=== PATIENT | female | born 1975 | race Caucasian/White ===

== ENCOUNTER 2017-03-22 18:28 | Emergency (ER) | payer BC ==
[~2017-03-22] VITALS: Ht 162.6 cm; Wt 77.3 kg
[2017-03-22 18:29] VITALS: TEMP 36.7; Ht 162.6 cm; Wt 77.3 kg
[2017-03-22] MEDS ORDERED: SODIUM CHLORIDE 0.9% 1000ML 1,000 ML IV STA (19:29)
[2017-03-22] MEDS ORDERED: LORAZEPAM 2 MG/ML 1 ML VIAL IV STA (19:29)
[2017-03-22] MEDS ORDERED: MECLIZINE HCL 25 MG TAB PO STA (19:29)
[2017-03-22] MEDS ORDERED: ONDANSETRON INJ 2 MG/ML 2 ML VIAL IV STA (19:29)
[2017-03-22] MEDS ORDERED: METHYLPREDNISOLONE 125 MG VIAL IV STA (19:29)
--- NOTE | 2017-03-22 19:37 | EMERGENCY ROOM VISIT NOTE ---
History Report prepared by Agatha: Estela Shine Under the Supervision of: Dr. Price Santos M.D. First contact with patient: 19:21 Chief Complaint: VERTIGO Stated Complaint: VERTIGO,VOMITING History of Present Illness The patient is a 41 year old female who presents to the Emergency Room with complaints of constant vertigo beginning today. The patient has been having issues with her allergies for the past week. She has been taking Claritin, Flonase, and Sudafed to manage these symptoms and states that she has taken these medications in the past without any issues. Today the patient was sitting down and working when she started to feel dizzy. She states that she continued her work, but suddenly became nauseated and had to vomit. This started very suddenly today. She denies feeling like she is spinning or feeling like the room is spinning. The patient states that her symptoms worsen with movement and resolve if she remains completely still. She has had vertigo in the past and states that she had more of a room-spinning sensation at that time, but she states that this feels similar to her previous vertigo although this episode is much more intense. The patient notes ear pressure but denies any ear pain. She denies any recent injury or trauma. She denies hitting her head or falling. The patient also denies any numbness or weakness in her extremities, fevers, cough, sore throat, and urinary symptoms. Source of History: patient Onset: today Position: other (global) Quality: other (vertigo/dizzy) Timing: constant Modifying Factors (Worsening): movement Modifying Factors (Relieving): other (remaining still) Associated Symptoms: + nausea, + vomiting, No fevers, No sorethroat, No cough, No urinary symptoms, No weakness, No numbness Note: Pt notes ear pressure but denies ear pain. Pt denies recent injury or trauma. Review of Systems See HPI for pertinent positives & negatives. A total of 10 systems reviewed and were otherwise negative. Past Medical & Surgical Medical Problems: (1) Lyme disease Surgical Problems: (1) History of appendectomy Social History Problems: (1) IUD (intrauterine device) in place Family History Cancer FH: heart disease Hypertension Social History Smoking Status: Never Smoker Smokeless Tobacco Use: No Alcohol Use: none Drug Use: none Marital Status: Housing Status: lives with family Occupation Status: employed Current/Historical Medications Scheduled Loratadine (Claritin), 10 MG PO DAILY Scheduled PRN Fluticasone Propionate (Nasal) (Flonase Allergy Relief), 2 SPRAYS HANNAH BID PRN for Nasal Congestion Pseudoephedrine (Sudafed), 30 MG PO BID PRN for CONGESTION Allergies Coded Allergies: Promethazine (Verified Adverse Reaction, Severe, RESTLESSNESS, 03/22/17) Physical Exam Vital Signs Date Time Temp Pulse Resp B/P (MAP) Pulse Ox O2 Delivery O2 Flow Rate FiO2 03/22/17 22:29 100 16 131/74 98 Room Air 03/22/17 19:49 82 16 132/78 96 Room Air 03/22/17 18:29 36.7 127 16 152/90 96 Room Air Physical Exam GENERAL: Patient is in no acute distress. HEENT: No acute trauma, normocephalic atraumatic, mucous membranes moist, no nasal congestion, no scleral icterus, PERRL, no nystagmus. TMs clear bilaterally. NECK: No stridor, no adenopathy, no meningismus, trachea is midline. LUNGS: Clear to auscultation bilaterally, no wheeze, no rhonchi, breath sounds equal. HEART: Tachycardic with a regular rhythm, no murmurs. ABDOMEN: Soft, nontender, bowel sounds positive, no hernias, no peritonitis. EXTREMITIES: No cyanosis or edema, full range of motion of all the joints without pain or difficulty, no signs for acute trauma. NEUROLOGIC: Oriented x 3, no acute motor or sensory deficits, no focal weakness. No facial droop or speech slur, no pronator drift or cerebellar dysfunction, no nystagmus. SKIN: No rash, no jaundice, no diaphoresis. Medical Decision & Procedures ER Provider Diagnostic Interpretation: Radiology results as stated below per my review and radiologist interpretation: CT SCAN OF THE BRAIN WITHOUT IV CONTRAST CLINICAL HISTORY: Dizziness. COMPARISON STUDY: No priors. TECHNIQUE: Unenhanced axial CT scan of the brain is performed from the vertex to the skull base. Automated dose control exposure was utilized. A dose lowering technique was utilized adhering to the principles of ALARA. CT DOSE: 537.48 mGy.cm FINDINGS: Brain parenchyma: A small chronic lacunar infarct is noted in the right cerebellar hemisphere. The brain parenchyma is otherwise normal in appearance. There is no hemorrhage, mass effect, or evidence of acute territorial ischemia by CT criteria. Alaniz-white matter is preserved. No extra-axial fluid collection is seen. Ventricles, sulci, cisterns: Normal in configuration. Intracranial vasculature: The visualized intracranial vasculature at the skull base is normal in appearance. Calvarium: Unremarkable. Sinuses and mastoids: There is evidence of previous paranasal sinus surgery. The visualized paranasal sinuses are clear. The mastoid air cells are well pneumatized. Orbits: The bony orbits are grossly intact. IMPRESSION: 1. There is no hemorrhage, mass effect, or evidence of acute territorial ischemia by CT criteria. 2. A chronic lacunar infarct is noted in the right cerebellar hemisphere. Electronically signed by: Price Ash M.D. 03/22/2017 10:15 PM Dictated Date/Time: 03/22/2017 10:13 PM Laboratory Results 03/22/17 21:45 Red Blood Count 4.72, Mean Corpuscular Volume 86.9, Mean Corpuscular Hemoglobin 30.9, Mean Corpuscular Hemoglobin Concent 35.6, Mean Platelet Volume 10.9, Neutrophils (%) (Auto) 85.4, Lymphocytes (%) (Auto) 8.5, Monocytes (%) (Auto) 5.4, Eosinophils (%) (Auto) 0.2, Basophils (%) (Auto) 0.1, Neutrophils # (Auto) 17.81, Lymphocytes # (Auto) 1.78, Monocytes # (Auto) 1.12, Eosinophils # (Auto) 0.04, Basophils # (Auto) 0.02 03/22/17 21:45 Test 03/22/17 21:45 White Blood Count 20.85 K/uL (4.8-10.8) Red Blood Count 4.72 M/uL (4.2-5.4) Hemoglobin 14.6 g/dL (12.0-16.0) Hematocrit 41.0 % (37-47) Mean Corpuscular Volume 86.9 fL (80-100) Mean Corpuscular Hemoglobin 30.9 pg (25-34) Mean Corpuscular Hemoglobin Concent 35.6 g/dl (32-36) Platelet Count 226 K/uL (130-400) Mean Platelet Volume 10.9 fL (7.4-10.4) Neutrophils (%) (Auto) 85.4 % Lymphocytes (%) (Auto) 8.5 % Monocytes (%) (Auto) 5.4 % Eosinophils (%) (Auto) 0.2 % Basophils (%) (Auto) 0.1 % Neutrophils # (Auto) 17.81 K/uL (1.4-6.5) Lymphocytes # (Auto) 1.78 K/uL (1.2-3.4) Monocytes # (Auto) 1.12 K/uL (0.11-0.59) Eosinophils # (Auto) 0.04 K/uL (0-0.5) Basophils # (Auto) 0.02 K/uL (0-0.2) RDW Standard Deviation 42.1 fL (36.4-46.3) RDW Coefficient of Variation 13.1 % (11.5-14.5) Immature Granulocyte % (Auto) 0.4 % Immature Granulocyte # (Auto) 0.08 K/uL (0.00-0.02) Anion Gap 8.0 mmol/L (3-11) Est Creatinine Clear Calc Drug Dose 118.3 ml/min Estimated GFR () 129.1 Estimated GFR (Non- 111.4 BUN/Creatinine Ratio 16.5 (10-20) Calcium Level 8.9 mg/dl (8.5-10.1) Total Bilirubin 0.6 mg/dl (0.2-1) Aspartate Amino Transf (AST/SGOT) 22 U/L (15-37) Alanine Aminotransferase (ALT/SGPT) 35 U/L (12-78) Alkaline Phosphatase 92 U/L (45-117) Total Protein 7.9 gm/dl (6.4-8.2) Albumin 4.0 gm/dl (3.4-5.0) Globulin 3.9 gm/dl (2.5-4.0) Albumin/Globulin Ratio 1.0 (0.9-2) Thyroid Stimulating Hormone (TSH) 2.550 uIu/ml (0.300-4.500) Human Chorionic Gonadotropin, Qual NEG (NEG) Laboratory results reviewed by me. Medications Administered Medications (Trade) Dose Ordered Sig/Amira Route Start Time Stop Time Status Last Admin Dose Admin Ondansetron HCl (Zofran Inj) 4 mg NOW STAT IV 03/22/17 19:29 03/22/17 19:34 DC 03/22/17 21:49 4 MG Sodium Chloride 1,000 ml @ 999 mls/hr Q1H1M STAT IV 03/22/17 19:29 03/22/17 20:29 DC 03/22/17 19:29 999 MLS/HR Meclizine HCl (Antivert Tab) 25 mg NOW STAT PO 03/22/17 19:29 03/22/17 19:34 DC 03/22/17 21:49 25 MG Lorazepam (Ativan Inj) 0.5 mg NOW STAT IV 03/22/17 19:29 03/22/17 19:34 DC 03/22/17 19:29 0.5 MG Methylprednisolone Sodium Succinate (Solu-Medrol IV) 60 mg NOW STAT IV 03/22/17 19:29 03/22/17 19:34 DC 03/22/17 19:29 60 MG ECG Indication: nausea Rate (beats per minute): 96 Rhythm: normal sinus Findings: no acute ischemic change, prolonged QT (somewhat), no ectopy ED Course 1920: The patient was evaluated in room B12B. A complete history and physical exam was performed. 1928: Solu-Medrol 60 mg IV, Ativan 0.5 mg IV, Antivert tab 25 mg PO, NSS 1000 ml @ 999 mls/hr IV, Zofran 4 mg IV 2241: I reassessed the patient at this time. She is feeling better and resting comfortably. I discussed the results and treatment plan with the patient. I answered all pertaining questions that she had. She expressed understanding and verbalized agreement. 2326: I spoke with Dr. Patrick. We discussed the patient's case. The patient will be evaluated by the [facility] for further management. Medical Decision Differential diagnoses includes vertigo, dehydration, dysrhythmia, stroke, UTI, , electrolyte imbalance, anemia. There is a significant leukocytosis, this could be consistent with infection or just the stress of today's event. No concerning anemia. No significant electrolyte abnormality, kidney failure or hepatitis. The patient appears to be in a euthyroid state. testing is negative. Brain CT shows an old infarct in the cerebellum, no acute bleed or acute stroke seen. On my exam, there were no focal neurologic deficits. The patient was not febrile or toxic. She states that lately she has been dealing with some allergies but otherwise has been feeling at baseline. The patient received IV saline, IV Zofran, IV Ativan, oral meclizine. She received IV Solu-Medrol. The patient is feeling improved. She still has some symptoms though. With the findings of an old stroke in the cerebellum, I was concerned about a potential new stroke causing her symptoms. I did think further workup was warranted. Certainly, her symptoms could be vertiginous but with the old stroke findings on CT, acute stroke is a consideration as well. She is not a candidate for TPA as she is out of the time window for TPA and as, she has no significant findings on exam that would warrant TPA administration. I spoke to the patient and case management. The on-call hospitalist was consulted. Medication Reconcilliation Current Medication List: was personally reviewed by me Blood Pressure Screening Patient's blood pressure: Elevated blood pressure Blood pressure disposition: Elevated BP felt to be situational Consults Time Called: 2251 Consulting Physician: Dr. Patrick Returned Call: [address] Patrick. We discussed the patient's case. The patient will be evaluated by the [facility] for further management. Impression Primary Impression: Stroke-like symptoms Additional Impression: Vomiting Scribe Attestation The scribe's documentation has been prepared under my direction and personally reviewed by me in its entirety. I confirm that the note above accurately reflects all work, treatment, procedures, and medical decision making performed by me. 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
[2017-03-22] MEDS ORDERED: PSEU30TA20 PO (20:54)
[2017-03-22] MEDS ORDERED: FLUT0.15 NAE (20:54)
[2017-03-22] MEDS ORDERED: CLR10 PO (20:54)
[2017-03-22] MEDS ORDERED: LORAZEPAM 2 MG/ML 1 ML VIAL ONE (21:44)
[2017-03-22] MEDS ORDERED: MECLIZINE HCL 25 MG TAB PO ONE (21:45)
[2017-03-22] MEDS ORDERED: ONDANSETRON INJ 2 MG/ML 2 ML VIAL ONE (21:46)
[2017-03-22 21:56] LABS: MEAN CELL VOLUME 86.9 fL (80-100); MEAN CORPUSCULAR HEMOGLOBIN 30.9 pg (25-34); MEAN CORPUSCULAR HGB CONC 35.6 g/dl (32-36); MEAN PLATELET VOLUME 10.9 fL (7.4-10.4); PLATELET COUNT 226 K/uL (130-400); RED BLOOD COUNT 4.72 M/uL (4.2-5.4); WHITE BLOOD COUNT 20.85 K/uL (4.8-10.8)
[2017-03-22 22:15] LABS: BUN/CREATININE RATIO 16.5 (10-20); CALCIUM 8.9 mg/dl (8.5-10.1); CREATININE 0.63 mg/dl (0.60-1.20); POTASSIUM 3.8 mmol/L (3.5-5.1)
--- NOTE | 2017-03-22 22:17 | DIAGNOSTIC IMAGING REPORT ---
CT SCAN OF THE BRAIN WITHOUT IV CONTRAST CLINICAL HISTORY: Dizziness. COMPARISON STUDY: No priors. TECHNIQUE: Unenhanced axial CT scan of the brain is performed from the vertex to the skull base. Automated dose control exposure was utilized. A dose lowering technique was utilized adhering to the principles of ALARA. CT DOSE: 537.48 mGy.cm FINDINGS: Brain parenchyma: A small chronic lacunar infarct is noted in the right cerebellar hemisphere. The brain parenchyma is otherwise normal in appearance. There is no hemorrhage, mass effect, or evidence of acute territorial ischemia by CT criteria. Alaniz-white matter is preserved. No extra-axial fluid collection is seen. Ventricles, sulci, cisterns: Normal in configuration. Intracranial vasculature: The visualized intracranial vasculature at the skull base is normal in appearance. Calvarium: Unremarkable. Sinuses and mastoids: There is evidence of previous paranasal sinus surgery. The visualized paranasal sinuses are clear. The mastoid air cells are well pneumatized. Orbits: The bony orbits are grossly intact. IMPRESSION: 1. There is no hemorrhage, mass effect, or evidence of acute territorial ischemia by CT criteria. 2. A chronic lacunar infarct is noted in the right cerebellar hemisphere. Electronically signed by: Price Ash M.D. 03/22/2017 10:15 PM Dictated Date/Time: 03/22/2017 10:13 PM
[2017-03-22 22:26] LABS: THYROID STIMULATING HORMONE 2.55 uIu/ml (0.300-4.500)
[2017-03-22 22:28] LABS: BASO % 0.1 %; BASO ABS # 0.02 K/uL (0-0.2); COMPLETE YES; EOS % 0.2 %; IG% 0.4 %; LYMPH % 8.5 %; LYMPH ABS # 1.78 K/uL (1.2-3.4); MONO % 5.4 %; NEUT % 85.4 %
[2017-03-22 22:36] LABS: PREG INTERNAL NEGATIVE QC NEG CLEAR BACKGROUND; PREG INTERNAL POSITIVE QC POS CONTROL LINE
[2017-03-22] MEDS ORDERED: OPTIRAY 320 IV PRN (23:45)
--- NOTE | 2017-03-23 00:20 | History and Physical ---
History & Physical Date & Time of Service: Mar 22, 2017 at 23:34 Chief Complaint: Vertigo,Vomiting Primary Care Physician: No Doctor, Assigned History of Present Illness Source: patient 41 y/o F Hx seasonal allergies and vertigo. She had been taking Pseudafed and Claritin recently for her allergies. She became dizzy at work and then developed nausea and vomiting which persisted prompting her to visit the ER. The pt was provided with Ativan, Zofran, Meclizine and Solumedrol. She gradually improved and was initially slated for discharge. A CT head however raises suspicion for a chronic cerebelar lacunar infarct. She states she knew she had an abnormality on imaging 8 years earlier owing to a vertigo work up at that time. She mentions that it was initially suspected that she had a small tumor and then MS which were both apparently ruled out. She does not recall being told that she may have had a CVA. She recently completed a course of antibiotics for Lyme disease which was diagnosed in January. Past Medical/Surgical History Medical Problems: (1) Lyme disease Status: Resolved 2) Seasonal allergies 3) Vertigo Surgical Problems: (1) History of appendectomy Status: Resolved Social History Problems: (1) IUD (intrauterine device) in place Status: Chronic Family History Cancer FH: heart disease Hypertension Father owing to an IA Mother is alive No history of CVA Social History Smoking Status: Never Smoker Smokeless Tobacco Use: No Drug Use: none Marital Status: Occupational Status: employed Allergies Coded Allergies: Promethazine (Verified Adverse Reaction, Severe, RESTLESSNESS, 03/22/17) Home Medications Scheduled Loratadine (Claritin), 10 MG PO DAILY Scheduled PRN Fluticasone Propionate (Nasal) (Flonase Allergy Relief), 2 SPRAYS HANNAH BID PRN for Nasal Congestion Pseudoephedrine (Sudafed), 30 MG PO BID PRN for CONGESTION Review of Systems Constitutional: No fever, No chills, No sweats Eyes: No worsening of vision, No eye pain ENT: No hearing loss, No nasal symptoms Respiratory: No cough, No sputum, No wheezing Cardiovascular: No chest pain, No PND Abdomen: + nausea, + vomiting, No pain Musculoskeletal: No joint pain Genitourinary - Female: No dysuria, No urinary frequency Neurologic: + vertigo, No memory loss, No paralysis Psychiatric: No depression symptoms Endocrine: No fatigue Hematologic / Lymphatic: No abnormal bleeding/bruising Integumentary: No rash Allergic / Immunologic: No environmental allergies Physical Exam Vital Signs Date Time Temp Pulse Resp B/P (MAP) Pulse Ox O2 Delivery O2 Flow Rate FiO2 03/22/17 22:29 100 16 131/74 98 Room Air 03/22/17 19:49 82 16 132/78 96 Room Air 03/22/17 18:29 36.7 127 16 152/90 96 Room Air General Appearance: WD/WN, no apparent distress Head: normocephalic, atraumatic Eyes: normal inspection ENT: normal ENT inspection, pharynx normal Neck: supple, no JVD Respiratory/Chest: chest non-tender, lungs clear, normal breath sounds Cardiovascular: regular rate, rhythm, no edema, no gallop, no JVD, no murmur, normal peripheral pulses Abdomen/GI: normal bowel sounds, non tender, soft Back: normal inspection, no CVA tenderness, no muscle spasm, normal range of motion Extremities/Musculoskelatal: normal inspection, no calf tenderness, normal capillary refill, no pedal edema, normal range of motion 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, no motor/sensory deficits, alert, normal mood/affect, normal reflexes, oriented x 3 Skin: normal color, warm/dry, no rash Diagnostics Laboratory Results Results Past 24 Hours Test 03/22/17 21:45 Range/Units White Blood Count 20.85 4.8-10.8 K/uL Red Blood Count 4.72 4.2-5.4 M/uL Hemoglobin 14.6 12.0-16.0 g/dL Hematocrit 41.0 37-47 % Mean Corpuscular Volume 86.9 80-100 fL Mean Corpuscular Hemoglobin 30.9 25-34 pg Mean Corpuscular Hemoglobin Concent 35.6 32-36 g/dl Platelet Count 226 130-400 K/uL Mean Platelet Volume 10.9 7.4-10.4 fL Neutrophils (%) (Auto) 85.4 % Lymphocytes (%) (Auto) 8.5 % Monocytes (%) (Auto) 5.4 % Eosinophils (%) (Auto) 0.2 % Basophils (%) (Auto) 0.1 % Neutrophils # (Auto) 17.81 1.4-6.5 K/uL Lymphocytes # (Auto) 1.78 1.2-3.4 K/uL Monocytes # (Auto) 1.12 0.11-0.59 K/uL Eosinophils # (Auto) 0.04 0-0.5 K/uL Basophils # (Auto) 0.02 0-0.2 K/uL RDW Standard Deviation 42.1 36.4-46.3 fL RDW Coefficient of Variation 13.1 11.5-14.5 % Immature Granulocyte % (Auto) 0.4 % Immature Granulocyte # (Auto) 0.08 0.00-0.02 K/uL Sodium Level 141 136-145 mmol/L Potassium Level 3.8 3.5-5.1 mmol/L Chloride Level 106 98-107 mmol/L Carbon Dioxide Level 27 21-32 mmol/L Anion Gap 8.0 3-11 mmol/L Blood Urea Nitrogen 10 7-18 mg/dl Creatinine 0.63 0.60-1.20 mg/dl Est Creatinine Clear Calc Drug Dose 118.3 ml/min Estimated GFR () 129.1 Estimated GFR (Non- 111.4 BUN/Creatinine Ratio 16.5 10-20 Random Glucose 103 70-99 mg/dl Calcium Level 8.9 8.5-10.1 mg/dl Total Bilirubin 0.6 0.2-1 mg/dl Aspartate Amino Transf (AST/SGOT) 22 15-37 U/L Alanine Aminotransferase (ALT/SGPT) 35 12-78 U/L Alkaline Phosphatase 92 45-117 U/L Total Protein 7.9 6.4-8.2 gm/dl Albumin 4.0 3.4-5.0 gm/dl Globulin 3.9 2.5-4.0 gm/dl Albumin/Globulin Ratio 1.0 0.9-2 Thyroid Stimulating Hormone (TSH) 2.550 0.300-4.500 uIu/ml Human Chorionic Gonadotropin, Qual NEG NEG Diagnostic Radiology CT head 1. There is no hemorrhage, mass effect, or evidence of acute territorial ischemia by CT criteria. 2. A chronic lacunar infarct is noted in the right cerebellar hemisphere. EKG Sinus tach - borderline QT Impression Assessment and Plan 41 y/o F Hx seasonal allergies and vertigo. She had been taking Pseudafed and Claritin recently for her allergies. She became dizzy at work and then developed nausea and vomiting which persisted prompting her to visit the ER. The pt was provided with Ativan, Zofran, Meclizine and Solumedrol. She gradually improved and was initially slated for discharge. A CT head however raises suspicion for a chronic cerebelar lacunar infarct. She states she knew she had an abnormality on imaging 8 years earlier owing to a vertigo work up at that time. She mentions that it was initially suspected that she had a small tumor and then MS which were both apparently ruled out. She does not recall being told that she may have had a CVA. The pt does not have any classic risk factors for a CVA. In lite of the above findings we will obtain a CTA to r/o vertebral dissection and possibly confirm the initial reading. Her neuro evaluation is entirely normal. Addendum: CTA did not confirm the initial CT findings and was read as normal. An initial EKG showed borderline QT prolongation which was not present on a repeat and may have been rate-related - regardless, we have advised her to discontinue pseudoephedrine. The pt's symptoms have resolved and she has requested discharge - this will be arranged with the ER attending. Please consider the above an outpatient consult Total time for this consult including review of labs, meds, EG, imaging - discussion with pt and ER attending - 35 min
[2017-03-23] MEDS ORDERED: PRED20TA PO (01:17)
[2017-03-23] MEDS ORDERED: ANT25 PO (01:17)
--- NOTE | 2017-03-23 01:21 | EMERGENCY ROOM VISIT NOTE ---
ED Visit Note First contact with patient: 19:21 The patient was seen by the hospitalist. A CTA of the brain was done, this did not show any acute infarct or arterial narrowing. The patient was feeling markedly better and asking to be discharged home. The hospitalist felt discharge was appropriate. Patient was written for some meclizine for potential vertigo, some prednisone to help with the vertigo. Rest and hydration were encouraged. She was told to follow with her doctor when she returned home, she will return for any worsening symptoms. Of note, the patient was aware of the old stroke on CT, she states that this has been worked up in the past and she was not told to start any antiplatelet medications (aspirin or Plavix).
[2017-03-23] MEDS ORDERED: MECLIZINE HCL 25MG HOME PACK PO ONE (01:30)
[2017-03-23 01:34] VITALS: BP 130/70; PULSE 97; O2SAT 95
--- NOTE | 2017-03-23 07:05 | DIAGNOSTIC IMAGING REPORT ---
NECK ANGIO WITH CONTRAST CLINICAL HISTORY: 41 years-old Female presenting with stroke, concern for vertebral dissection. TECHNIQUE: Multidetector CT angiography of the neck was performed after the administration of intravenous contrast. 3-D volumetric and/or maximum intensity projection (MIP) images were subsequently reconstructed for review. IV contrast: 92 mL of Optiray 320. A dose lowering technique was used consistent with the principles of ALARA (as low as reasonably achievable). All measurements were calculated based on NASCET-like criteria. COMPARISON: None. CT DOSE (mGy.cm): The estimated cumulative dose is 559.14 mGy.cm. 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 Three-vessel aortic arch. Bilateral common and internal carotid arteries patent at their origins and throughout their courses. Bilateral vertebral arteries patent at their origins. Slight dominance of the right vertebral artery, which is patent. Left vertebral artery demonstrates irregularity at the C1-2 level (series 5 image 158). However, evaluation is somewhat degraded by opacification of perivertebral veins. The more distal intradural portion of the left vertebral artery is patent. Limited intracranial evaluation demonstrates grossly patent anterior and posterior circulations and dural venous sinuses. Paranasal sinuses and mastoid air cells clear. Orbits normal. No lymphadenopathy. Normal thyroid. Lung apices clear. Slight reversal of normal cervical lordosis likely positional. Minimal degenerative change in the cervical spine. IMPRESSION: 1. Irregularity of the left vertebral artery at the C1-2 level. Evaluation is somewhat degraded by opacification of paravertebral veins. Within this limitation, this irregularity suggests intimal injury. No clear dissection or vessel occlusion. Imaging follow-up could be obtained to ensure resolution of this finding. Electronically signed by: Asa Magaña M.D. 03/23/2017 7:03 AM Dictated Date/Time: 03/23/2017 6:57 AM
--- NOTE | 2017-03-23 08:04 | DIAGNOSTIC IMAGING REPORT ---
HEAD ANGIO WITH CONTRAST HISTORY: 41 years-old Female presents with possible intimal injury of the left vertebral artery COMPARISON: CT head and CTA neck 03/22/2017. TECHNIQUE: CT angiography of the head was obtained following the intravenous administration of 92 mL Optiray 320. Coronal and sagittal MIPS were also obtained. 3-D MIPS reformats were obtained from a separate workstation. A dose lowering technique was used consistent with the principals of JAZMINE. FINDINGS: Venous sinuses appear patent. No abnormal intracranial enhancement identified. Brain parenchyma demonstrates no acute abnormality or abnormal enhancement. The imaged bilateral carotid arteries are patent. The proximal middle and anterior cerebral arteries and anterior communicating artery appear patent and within normal limits. There is partially imaged tortuosity of the distal left V3 portion of the vertebral artery as seen on image 4 of the axial series, further discussed on CTA of the neck of same day. The V4 portion left vertebral artery is diminutive in size, likely congenital variation.The imaged right vertebral artery appears normal. Basilar artery is patent. Bilateral posterior cerebral arteries appear patent. There is evidence of prior bilateral maxillary antrostomy. Mild mucosal thickening of the maxillary sinuses is seen. IMPRESSION: 1. No high-grade stenosis, proximal branch occlusion, dissection or aneurysm identified. 2. Partially imaged tortuosity of the distal left V3 segment of the vertebral artery is better evaluated and discussed on comparison CTA neck 03/22/2017. The above report was generated using voice recognition software. It may contain grammatical, syntax or spelling errors. Electronically signed by: Goran Garland M.D. 03/23/2017 8:03 AM Dictated Date/Time: 03/23/2017 7:45 AM
== END 2017-03-23 01:34 | disposition home or self-care (01) ==
LOC: C.EDB 18:29
DX: Z86.73 Personal history of transient ischemic attack (TIA), and cerebral infarction without residual deficits (principal); R11.2 Nausea with vomiting, unspecified; A69.20 Lyme disease, unspecified; Z82.49 Family history of ischemic heart disease and other diseases of the circulatory system